=== PATIENT | male | born 1950 | race Two or more races ===

== ENCOUNTER 2024-02-02 14:08 | Inpatient (IN) | payer OTHER ==
[2024-02-02 15:22] VITALS: BMI 19.4
[2024-02-02] MEDS ORDERED: MAGNESIUM HYDROX 2400MG/30ML ORAL SUSPENSION 30 ML CUP PO PRN (18:26)
[2024-02-02] MEDS ORDERED: POLYETHYLENE GLYCOL (HEALTHYLAX) 3350 17 GM PACKET PO PRN (18:26)
[2024-02-02] MEDS ORDERED: IBUPROFEN 400 MG TABLET (FP) PO PRN (18:26)
[2024-02-02] MEDS ORDERED: MAG HYDROX/AL HYDROX/SIMETH 30 ML UNIT-DOSE CUP PO PRN (18:26)
[2024-02-02] MEDS ORDERED: guaiFENesin 600 MG TABLET.ER (FP) PO PRN (18:26)
[2024-02-02] MEDS ORDERED: BENZONATATE 200 MG CAPSULE PO PRN (18:26)
[2024-02-02] MEDS ORDERED: NALOXONE (NARCAN) HCL 4 MG/0.1 ML SPRAY NS PRN (18:26)
[2024-02-02] MEDS ORDERED: NALOXONE (NYS OPIOID OVERDOSE PROGRAM) 4 MG/0.1 ML SPRAY NS PRN (18:26)
[2024-02-02] MEDS ORDERED: IBUPROFEN 600 MG TABLET (FP) PO PRN (18:26)
[2024-02-02] MEDS ORDERED: BENZOCAINE/MENTHOL (CHLORASEPTIC ) LOZENGE MM PRN (18:26)
[2024-02-02] MEDS ORDERED: LOPERAMIDE HCL 2 MG CAPSULE PO PRN (18:26)
[2024-02-02] MEDS: MELATONIN 5 MG TABLETS PO SCH (21:22)
[2024-02-02] MEDS: THIAMINE 100 MG TABLET PO SCH (21:22)
[2024-02-02] MEDS: levETIRAcetam 500 MG TABLET (FP) PO SCH (23:32)
[2024-02-03] MEDS: metFORMIN HCL 500 MG TABLET (FP) PO SCH (07:45)
[2024-02-03] MEDS: CLOPIDOGREL BISULFATE 75 MG TABLET (FP) PO SCH (10:26)
[2024-02-03] MEDS: FOLIC ACID 1 MG TABLET (FP) PO SCH (10:26)
[2024-02-03] MEDS: PRENATAL VITAMINS W/ FOLIC ACID TABLET (FP) PO SCH (10:27)
[2024-02-03] MEDS: methaDONE HCL 10 MG TABLET PO SCH (11:14)
[2024-02-03] MEDS: methaDONE HCL 10 MG TABLET PO ONE (11:14)
[2024-02-03] MEDS: ACETAMINOPHEN 325 MG TABLET (FP) PO PRN (11:16)
[2024-02-03 14:34] LABS: HEMATOCRIT 32.9 % (35.4-49); HEMOGLOBIN 10.8 GM/dL (11.7-16.9); MCH 33.2 pg (25.7-33.7); MCHC 32.7 g/dl (32.0-35.9); MEAN CELL VOLUME 101.6 fl (80-96); PLATELET COUNT 198 10^3/uL (134-434); RBC 3.24 M/mm3 (4.00-5.60); RDW 16.8 % (11.9-15.9); WHITE BLOOD COUNT 3.2 K/mm3 (4.0-10.0)
[2024-02-03 14:38] LABS: CHLORIDE 105 mmol/L (98-107); POTASSIUM 4.5 mmol/L (3.5-5.1); SODIUM 138 mmol/L (136-145)
[2024-02-03 14:45] LABS: ANION GAP 5 mmol/L (4-13); CALCIUM 8.9 mg/dL (8.5-10.1); CO2 28 mmol/L (21-32)
[2024-02-03 14:46] LABS: ALBUMIN 2.8 g/dl (3.4-5.0); GLUCOSE,RANDOM 87 mg/dL (74-106)
[2024-02-03 14:47] LABS: BLOOD UREA NITROGEN 21.6 mg/dL (7-18)
[2024-02-03 14:49] LABS: SGPT/ALT 26 U/L (13-61)
[2024-02-03 14:50] LABS: CREATININE 0.9 mg/dL (0.55-1.3); SGOT/AST 37 U/L (15-37)
[2024-02-03 14:51] LABS: BILIRUBIN,TOTAL 0.7 mg/dL (0.2-1)
[2024-02-03 14:52] LABS: ALK PHOS 45 U/L (45-117); TOT PROT 8.8 g/dl (6.4-8.2)
[2024-02-03 15:23] LABS: SYPHILIS W/ RPR CONF NON-REACTIVE (NONREACTIVE)
[2024-02-03] MEDS: ATORVASTATIN CA 80 MG TABLET (FP) PO SCH (21:18)
[2024-02-04] MEDS ORDERED: TUBERCULIN PPD 5 TU/0.1ML VIAL ID ONE ×2 (16:36→18:04)
[2024-02-05] MEDS ORDERED: BISMUTH SUBSALICYLATE 262 MG/15 ML BTL PO PRN (12:16)
[2024-02-05] MEDS ORDERED: DICYCLOMINE HCL 10 MG CAPSULE PO PRN (12:16)
[2024-02-05] MEDS ORDERED: hydrOXYzine PAMOATE 25 MG CAPSULE (FP) PO PRN (12:16)
[2024-02-05] MEDS ORDERED: guaiFENesin 600 MG TABLET.ER (FP) PO PRN (12:16)
[2024-02-05] MEDS ORDERED: METHOCARBAMOL 500 MG TABLET PO PRN (12:16)
[2024-02-05] MEDS ORDERED: ONDANSETRON *ODT* 4 MG TABLET SL PRN (12:16)
[2024-02-05] MEDS ORDERED: IBUPROFEN 400 MG TABLET (FP) PO PRN (12:16)
[2024-02-05] MEDS ORDERED: BENZONATATE 200 MG CAPSULE PO PRN (12:16)
[2024-02-05] MEDS ORDERED: IBUPROFEN 600 MG TABLET (FP) PO PRN (12:16)
[2024-02-05] MEDS: DIVALPROEX SODIUM 250 MG TABLET E.C. PO SCH (13:10)
[2024-02-05] MEDS: FERROUS SO4 325 MG TABLET (FP) PO SCH (13:20)
[2024-02-09] MEDS ORDERED: BISMUTH SUBSALICYLATE 262 MG/15 ML BTL PO PRN (15:46)
[2024-02-09] MEDS ORDERED: BENZONATATE 200 MG CAPSULE PO PRN (15:46)
[2024-02-09] MEDS ORDERED: DICYCLOMINE HCL 10 MG CAPSULE PO PRN (15:46)
[2024-02-09] MEDS ORDERED: guaiFENesin 600 MG TABLET.ER (FP) PO PRN (15:46)
[2024-02-10] MEDS: BUPRENORPHINE/NALOXONE 0.5 MG/0.125 MG FILM SL ONE (19:02)
[2024-02-10] MEDS ORDERED: BUPRENORPHINE/NALOXONE 0.5 MG/0.125 MG FILM SL ONE (23:00)
[2024-02-11] MEDS: BUPRENORPHINE/NALOXONE 0.5 MG/0.125 MG FILM SL SCH (11:04)
[2024-02-11] MEDS: BACLOFEN 10 MG TABLET (FP) PO PRN (21:26)
[2024-02-12] MEDS: BUPRENORPHINE/NALOXONE 2 MG/0.5 MG FILM PACKET SL SCH (10:48)
[2024-02-12] MEDS: methaDONE HCL 10 MG TABLET PO ONE (10:48)
[2024-02-13] MEDS: BUPRENORPHINE/NALOXONE 4 MG/1 MG FILM PACKET SL SCH (10:23)
[2024-02-13] MEDS: methaDONE HCL 10 MG TABLET PO ONE (10:25)
[2024-02-14] MEDS: BUPRENORPHINE/NALOXONE 8 MG/2 MG FILM PACKET SL SCH (09:50)
[2024-02-15 06:44] VITALS: RESP 16
[2024-02-15] MEDS: BUPRENORPHINE/NALOXONE 8 MG/2 MG FILM PACKET SL SCH (09:23)
[2024-02-15] MEDS ORDERED: BUPRENORPHINE/NALOXONE 8 MG/2 MG FILM PACKET SL SCH (10:00)
[2024-02-16 09:13] VITALS: BP 110/77; PULSE 85; TEMP 98
[2024-02-16] MEDS ORDERED: levETIRAcetam 250 MG TABLET PO ONE (09:21)
== END 2024-02-16 10:45 | disposition home or self-care (01) | DRG 895 ==
LOC: YASAS 14:08 → Y3NR 19:12 → Y3E 02-03 09:33
PROVIDERS: ADMIT Allergy & Immunology; ATTEND Psychiatry & Neurology Pain Medicine
PROC: HZ42ZZZ Group Counseling for Substance Abuse Treatment, Cognitive-Behavioral (ICD-10-PCS; principal; 2024-02-02)
DX: F11.20 Opioid dependence, uncomplicated (principal); F17.210 Nicotine dependence, cigarettes, uncomplicated; D64.9 Anemia, unspecified; G40.909 Epilepsy, unspecified, not intractable, without status epilepticus; I25.10 Atherosclerotic heart disease of native coronary artery without angina pectoris; I10 Essential (primary) hypertension; E78.5 Hyperlipidemia, unspecified; E11.9 Type 2 diabetes mellitus without complications; Z79.84 Long term (current) use of oral hypoglycemic drugs; Z86.19 Personal history of other infectious and parasitic diseases
CPT/HCPCS: 36415; 80053; 80305; 80307; 82962; 85027; 86780; 86803; 87522; 87811; 93005; 93010; J0475